=== PATIENT | female | born 1955 | race Caucasian/White ===

== ENCOUNTER 2017-06-09 14:31 | Inpatient (IN) | payer SELFPAY ==
[~2017-06-09] VITALS: Ht 170.2 cm; Wt 64.5 kg
[2017-06-09 15:08] LABS: HEMATOCRIT 40.8 % (36.0-46.0); MCH 31.5 PG (29.0-34.0); MCHC 33.1 G/DL (30.0-36.0); MCV 95.1 FL (83-99); MEAN PLAT.VOLUME 10.1 uM^3 (9.5-12.4); PLATELET COUNT 232 K/uL (156-360); RBC DIS.WIDTH-CV 12.3 % (11.8-14.6); RBC DIS.WIDTH-SD 42.8 % (39-53); RED BLOOD COUNT 4.29 M/uL (3.80-5.20); WHITE BLOOD COUNT 14.9 K/uL (4.1-10.2)
[2017-06-09 15:16] LABS: CHLORIDE 107 mEq/L (99-109)
[2017-06-09 15:17] LABS: POTASSIUM 4.2 mEq/L (3.7-5.4); SODIUM 139 mEq/L (136-147)
[2017-06-09 15:19] LABS: GLUCOSE 110 mg/dL (70-99)
[2017-06-09 15:20] LABS: ANION GAP 5 MEQ/L (2-14)
[2017-06-09 15:21] LABS: TOTAL BILIRUBIN 0.9 mg/dL (0.0-1.0)
[2017-06-09 15:22] LABS: ALKALINE PHOSPHATASE 69 IU/L (3-129); GFR ESTIMATE (CALCULATED) > 59 mL/min/
[2017-06-09 15:24] LABS: UREA NITROGEN (BUN) 7 mg/dL (9-23)
[2017-06-09 16:01] LABS: LIPASE 24 U/L (1.0-51.0)
[2017-06-09 16:47] LABS: ADD MIUA? NO; BILIRUBIN NEGATIVE; BLOOD NEGATIVE; COLOR YELLOW ((YELLOW)); GLUCOSE (STRIP) NEGATIVE; KETONES NEGATIVE; LEUKOCYTES NEGATIVE; NITRITE NEGATIVE; PROTEIN (STRIP) NEGATIVE; SPECIFIC GRAVITY 1.008 (1.000-1.030); UCUL ADDED? NO; UROBILINOGEN 0.2 MG/DL (0.2-1.0)
[2017-06-09] MEDS ORDERED: CLARITIN,ALAVAR10 MG PO (21:42)
[2017-06-09] MEDS ORDERED: CHARCOAL200 MG PO (21:43)
[2017-06-09] MEDS ORDERED: STOOL SOFTENER100 MG PO (21:43)
[2017-06-10] VITALS (7 sets, daily range): BP systolic 100–138; BP diastolic 57–82
[2017-06-10 09:00] LABS: HEMATOCRIT 40.7 % (36.0-46.0); MCHC 31.9 G/DL (30.0-36.0); MCV 96.9 FL (83-99); MEAN PLAT.VOLUME 10.8 uM^3 (9.5-12.4); PLATELET COUNT 238 K/uL (156-360); RBC DIS.WIDTH-CV 12.3 % (11.8-14.6); RBC DIS.WIDTH-SD 43.9 % (39-53); WHITE BLOOD COUNT 13.6 K/uL (4.1-10.2)
[2017-06-10 09:30] LABS: ANION GAP 9 MEQ/L (2-14); CHLORIDE 107 MEQ/L (99-109); GFR ESTIMATE (CALCULATED) > 59 mL/min/; GLUCOSE 101 mg/dL (70-99); POTASSIUM 3.9 MEQ/L (3.7-5.4); SAMPLE HEMOLYSIS CHECK 1; SAMPLE ICTERIC CHECK 0; SAMPLE LIPEMIA CHECK 0; SODIUM 141 MEQ/L (136-147); UREA NITROGEN (BUN) 5 mg/dL (9-23)
[2017-06-11 03:45] VITALS: BP 114/62
[2017-06-11 07:09] LABS: HEMATOCRIT 32.6 % (36.0-46.0); MCH 32.9 PG (29.0-34.0); MCHC 33.4 G/DL (30.0-36.0); MCV 98.5 FL (83-99); MEAN PLAT.VOLUME 11.1 uM^3 (9.5-12.4); PLATELET COUNT 193 K/uL (156-360); RBC DIS.WIDTH-CV 12.3 % (11.8-14.6); RBC DIS.WIDTH-SD 44.8 % (39-53); WHITE BLOOD COUNT 7.5 K/uL (4.1-10.2)
[2017-06-11 07:25] VITALS: BP 127/73
[2017-06-11 07:26] LABS: RED BLOOD COUNT 3.31 M/uL (3.80-5.20)
[2017-06-11 07:34] LABS: ANION GAP 6 MEQ/L (2-14); CHLORIDE 112 MEQ/L (99-109); GFR ESTIMATE (CALCULATED) > 59 mL/min/; GLUCOSE 86 mg/dL (70-99); POTASSIUM 3.9 MEQ/L (3.7-5.4); SAMPLE HEMOLYSIS CHECK 0; SAMPLE ICTERIC CHECK 0; SAMPLE LIPEMIA CHECK 0; SODIUM 144 MEQ/L (136-147); UREA NITROGEN (BUN) 6 mg/dL (9-23)
[2017-06-11] MEDS ORDERED: POLYETHYLENE GL17 GM PO (09:58)
[2017-06-11] MEDS ORDERED: CIPROFLOXACIN500 M1 PO (09:58)
[2017-06-11] MEDS ORDERED: METRONIDAZOLE500 MG PO (09:58)
[2017-06-11] MEDS ORDERED: FLEET MINERAL133 ML PR (09:58)
[2017-06-11 11:15] VITALS: BP 125/72
== END 2017-06-11 14:50 | disposition home or self-care (01) | DRG 386 ==
LOC: EME 14:31 → 2EAST 23:47 → EDOF 23:47 → ENRESERV 23:49 → 2EAST 06-10 01:19
PROVIDERS: Hospitalist
PROC: 0DBN8ZX Excision of Sigmoid Colon, Via Natural or Artificial Opening Endoscopic, Diagnostic (ICD-10-PCS; principal; 2017-06-10)
DX: K51.912 Ulcerative colitis, unspecified with intestinal obstruction (principal); K57.30 Diverticulosis of large intestine without perforation or abscess without bleeding
CPT/HCPCS: 74176; 74177; 80048; 80053; 81003; 83690; 85027; 87040; 88305; 99281; 99285; J0330; J0744; J1100; J2405; J3010; J7030; S0028; S0030

== ENCOUNTER 2017-06-12 12:29 | Emergency (ER) | payer SELFPAY ==
[~2017-06-12] VITALS: Ht 170.2 cm; Wt 66.5 kg
[~2017-06-12 12:29] MED LIST: CHARCOAL200 MG PO; CIPROFLOXACIN500 M1 PO; CLARITIN,ALAVAR10 MG PO; FLEET MINERAL133 ML PR; METRONIDAZOLE500 MG PO; POLYETHYLENE GL17 GM PO; STOOL SOFTENER100 MG PO
[2017-06-12 13:36] LABS: HEMATOCRIT 34.6 % (36.0-46.0); MCH 31.4 PG (29.0-34.0); MCHC 32.9 G/DL (30.0-36.0); MCV 95.3 FL (83-99); MEAN PLAT.VOLUME 10.8 uM^3 (9.5-12.4); RBC DIS.WIDTH-SD 42.1 % (39-53); RED BLOOD COUNT 3.63 M/uL (3.80-5.20); WHITE BLOOD COUNT 5.6 K/uL (4.1-10.2)
[2017-06-12 13:37] LABS: PLATELET COUNT 258 K/uL (156-360)
[2017-06-12 13:45] LABS: CHLORIDE 112 mEq/L (99-109); POTASSIUM 3.5 mEq/L (3.7-5.4); SODIUM 144 mEq/L (136-147)
[2017-06-12 13:47] LABS: GLUCOSE 106 mg/dL (70-99)
[2017-06-12 13:48] LABS: ANION GAP 10 MEQ/L (2-14)
[2017-06-12 13:51] LABS: GFR ESTIMATE (CALCULATED) > 59 mL/min/; UREA NITROGEN (BUN) 5 mg/dL (9-23)
[2017-06-12 13:53] LABS: INFLUENZA A VIRAL ANTIGEN NEGATIVE; INFLUENZA B VIRAL ANTIGEN NEGATIVE
[2017-06-12 13:58] LABS: TROP-I INTERPRETATION NEGATIVE; TROPONIN-I < 0.01 ng/mL (0.0-0.30)
[2017-06-12 14:10] LABS: ADD MIUA? NO; BILIRUBIN NEGATIVE; BLOOD NEGATIVE; COLOR COLORLESS ((YELLOW)); GLUCOSE (STRIP) NEGATIVE; KETONES 5; LEUKOCYTES NEGATIVE; NITRITE NEGATIVE; PROTEIN (STRIP) NEGATIVE; SPECIFIC GRAVITY 1.003 (1.000-1.030); UCUL ADDED? NO; UROBILINOGEN 0.2 MG/DL (0.2-1.0)
[2017-06-12 17:02] LABS: TROP-I INTERPRETATION NEGATIVE; TROPONIN-I < 0.01 ng/mL (0.0-0.30)
[2017-06-12 18:07] VITALS: BP 141/70
[2017-06-14 11:04] LABS: LYME DISEASE SEROLOGY SCREEN NEGATIVE (NEGATIVE)
== END 2017-06-12 18:08 | disposition home or self-care (01) ==
LOC: EME 12:29
PROVIDERS: Physician Assistant Medical
DX: R06.00 Dyspnea, unspecified (principal); M79.1 Myalgia; T37.3X5A Adverse effect of other antiprotozoal drugs, initial encounter; Z53.29 Procedure and treatment not carried out because of patient's decision for other reasons; Z88.0 Allergy status to penicillin
CPT/HCPCS: 71275; 80048; 81003; 84484; 85027; 85379; 86618; 87502; 93005; 99281; 99285; J7030

== ENCOUNTER 2017-06-14 14:48 | Emergency (ER) | payer SELFPAY ==
[~2017-06-14] VITALS: Ht 170.2 cm; Wt 63.5 kg
[2017-06-14 18:16] LABS: HEMATOCRIT 37.7 % (36.0-46.0); MCH 31.7 PG (29.0-34.0); MCHC 33.7 G/DL (30.0-36.0); MEAN PLAT.VOLUME 10.3 uM^3 (9.5-12.4); PLATELET COUNT 319 K/uL (156-360); RBC DIS.WIDTH-CV 11.9 % (11.8-14.6); RBC DIS.WIDTH-SD 41.5 % (39-53); RED BLOOD COUNT 4.01 M/uL (3.80-5.20); WHITE BLOOD COUNT 4.9 K/uL (4.1-10.2)
[2017-06-14 18:31] LABS: CHLORIDE 108 mEq/L (99-109); POTASSIUM 3.5 mEq/L (3.7-5.4); SODIUM 142 mEq/L (136-147)
[2017-06-14 18:33] LABS: GLUCOSE 98 mg/dL (70-99)
[2017-06-14 18:35] LABS: ANION GAP 10 MEQ/L (2-14)
[2017-06-14 18:37] LABS: ALKALINE PHOSPHATASE 62 IU/L (3-129); GFR ESTIMATE (CALCULATED) > 59 mL/min/
[2017-06-14 18:38] LABS: UREA NITROGEN (BUN) 7 mg/dL (9-23)
[2017-06-14 18:46] LABS: TROP-I INTERPRETATION NEGATIVE; TROPONIN-I < 0.01 ng/mL (0.0-0.30)
[2017-06-14 18:55] LABS: TOTAL BILIRUBIN 0.2 mg/dL (0.0-1.0)
[2017-06-14] MEDS ORDERED: HYDROCHLOROTHIA25 MG PO (19:47)
[2017-06-14 20:15] VITALS: BP 172/94
== END 2017-06-14 20:15 | disposition home or self-care (01) ==
LOC: EME 14:48
PROVIDERS: Physician Assistant
DX: I10 Essential (primary) hypertension (principal)
CPT/HCPCS: 80053; 84484; 85027; 99281; 99285

== ENCOUNTER → 2017-10-01 | Outpatient (CLI) | payer BC, OTHER ==
[~2017-10-01] MED LIST changes: +ATIVAN0.5 MG PO; +HYDROCHLOROTHIA25 MG PO; +INDERAL LA60 MG PO
== END | disposition home or self-care (01) ==
LOC: AMB 14:00
PROC: 0JB80ZZ Excision of Abdomen Subcutaneous Tissue and Fascia, Open Approach (ICD-10-PCS; principal; 2017-10-01)
DX: L72.0 Epidermal cyst (principal); L02.211 Cutaneous abscess of abdominal wall